=== PATIENT | female | born 1950 | race Caucasian/White ===

== ENCOUNTER → 2018-07-27 | Emergency (ER) | payer OTHER, MEDICARE ==
[~2018-07-27] VITALS: Ht 162.6 cm; Wt 130.6 kg
[2018-07-27 19:50] VITALS: BP_SYST 160
== END | disposition still patient (30) ==
LOC: SED 19:40
DX: R51 Headache (principal); R42 Dizziness and giddiness; Z53.21 Procedure and treatment not carried out due to patient leaving prior to being seen by health care provider